=== PATIENT | male | born 1965 | race Caucasian/White ===

== ENCOUNTER 2018-07-18 06:36 | Day surgery (SDC) | payer OTHER ==
[2018-07-18] MEDS ORDERED: ZOFRAN ODT4 MG PO (12:26)
[2018-07-18] MEDS ORDERED: PERCOCET 5-3251 EACH PO (12:26)
[2018-07-18] MEDS ORDERED: MIRALAX17 GM PO (12:26)
== END 2018-07-18 17:46 | disposition home or self-care (01) ==
LOC: CIR.AMB 06:36
DX: K80.10 Calculus of gallbladder with chronic cholecystitis without obstruction (principal); K42.9 Umbilical hernia without obstruction or gangrene

== ENCOUNTER 2018-07-21 10:31 | Inpatient (IN) | payer OTHER ==
[~2018-07-21] VITALS: Ht 177.8 cm; Wt 73.9 kg
[~2018-07-21 10:31] MED LIST: MIRALAX17 GM PO; PERCOCET 5-3251 EACH PO; ZOFRAN ODT4 MG PO
[2018-07-31] MEDS ORDERED: ULTRACET PO (08:47)
== END 2018-07-31 14:45 | disposition home or self-care (01) | DRG 390 ==
LOC: ER 10:31 → SEC-K 14:03 → SURH 14:03
PROC: 3E0F7GC Introduction of Other Therapeutic Substance into Respiratory Tract, Via Natural or Artificial Opening (ICD-10-PCS; principal; 2018-07-21)
PROC: BW20ZZZ Computerized Tomography (CT Scan) of Abdomen (ICD-10-PCS; 2018-07-22)
PROC: 3E0436Z Introduction of Nutritional Substance into Central Vein, Percutaneous Approach (ICD-10-PCS; 2018-07-23)
PROC: 02HV33Z Insertion of Infusion Device into Superior Vena Cava, Percutaneous Approach (ICD-10-PCS; 2018-07-25)
DX: K91.31 Postprocedural partial intestinal obstruction (principal); K42.9 Umbilical hernia without obstruction or gangrene; N28.1 Cyst of kidney, acquired; E86.0 Dehydration; K21.9 Gastro-esophageal reflux disease without esophagitis; Z90.49 Acquired absence of other specified parts of digestive tract